=== PATIENT | female | born 1995 | race African-American/Black ===

== ENCOUNTER 2022-01-23 14:34 | Outpatient (REF) | payer OTHER, SELFPAY ==
[2022-01-24 13:41] LABS: CT PCR NOT DETECTED (Not Detect.); NG PCR NOT DETECTED (Not Detect.)
== END 2022-01-23 14:35 | disposition home or self-care (01) ==
LOC: HO.LAB 14:34
DX: Z11.3 Encounter for screening for infections with a predominantly sexual mode of transmission (principal); Z20.2 Contact with and (suspected) exposure to infections with a predominantly sexual mode of transmission
CPT/HCPCS: 87491; 87591